=== PATIENT | female | born 2005 | race Caucasian/White ===

== ENCOUNTER 2024-07-02 01:37 | Observation (INO) | payer SELFPAY ==
[2024-07-02 03:21] VITALS: BMI 18.3
[2024-07-02] MEDS ORDERED: Acetaminophen 325 MG TAB PO PRN (04:31)
[2024-07-02] MEDS: Ibuprofen 200 MG TAB PO SCH (05:13)
[2024-07-02] MEDS: Ferrous Sulfate 325 MG TAB PO SCH (08:09)
[2024-07-02 09:04] VITALS: TEMP 98.4
[2024-07-02 15:10] LABS: #Basophils 0.03 10x3/uL (0.0-0.2); #Eosinphils 0.04 10x3/uL (0.0-0.5); #Monocytes 0.66 10x3/uL (0.0-1.1); #Neutrophils 4.39 10x3/uL (1.5-8.4); %Basophils 0.4 % (0.0-2.0); %Eosinophils 0.6 % (0.0-6.0); %Monocytes 9.5 % (0.0-10.0); %Neutrophils 63.1 % (40.0-75.0); Hematocrit 29.6 % (34.9-44.5); Hemoglobin 9.6 g/dL (12.0-15.5); Mean Corpuscular HGB CONC 32.4 g/dL (32.0-36.0); Mean Corpuscular Hemoglobin 30.2 pg (27.0-33.0); Mean Corpuscular Volume 93.1 fL (81.6-98.3); Mean Platelet Volume 10.1 fL (7.4-10.4); Platelet Count 219 10x3/uL (150-450); RBC Distribution Width 14.8 % (11.5-14.5); Red Blood Cell (RBC) Count 3.18 10x6/uL (3.90-5.03)
[2024-07-02 16:13] VITALS: BP 90/54
== END 2024-07-02 18:55 | disposition home or self-care (01) ==
LOC: CSHPED 02:54
PROVIDERS: ADMIT Obstetrics & Gynecology; ATTEND Obstetrics & Gynecology
DX: N93.9 Abnormal uterine and vaginal bleeding, unspecified (principal); D62 Acute posthemorrhagic anemia; R00.0 Tachycardia, unspecified
CPT/HCPCS: 36415; 36430; 85025; 86850; 86900; 86901; G0378; P9016